=== PATIENT | female | born 1955 | race Caucasian/White ===

== ENCOUNTER 2017-01-30 09:43 | Emergency (ER) | payer MEDICAID ==
[2017-01-30 09:52] VITALS: BP 114/79
[2017-01-30] MEDS ORDERED: ACETAMINOPHEN 325 MG TABLET PO STA (10:00)
[2017-01-30] MEDS ORDERED: TETANUS/DIPHTHERIA/PERTUSSIS 0.5 ML SYRINGE IM ONE ×2 (10:00→10:16)
[2017-01-30] MEDS ORDERED: AMOX/CLAV 875 MG/125 MG TABLET PO STA (10:00)
[2017-01-30] MEDS ORDERED: IBUPROFEN 400 MG TABLET PO STA (10:00)
--- NOTE | 2017-01-30 10:05 | ED Physician Documentation ---
History of Present Illness - Stated complaint Stated Complaint: CAT SCRATCH,REDNESS/SWELLING - Chief complaint Chief Complaint: Laceration - Additonal information Additional information: hx from pt 61 healthy female tdap > 10 yr ago bit and scratched dorsal R FA by her healthy indoor cat last night 8 PM now red swollen painful at bit site Review of Systems Constitutional: denies: Fever Skin: reports: Bite / sting Immunocompromised: denies: Immunocompromised PD PAST MEDICAL HISTORY - Past Medical History Past Medical History: Yes Endocrine/Autoimmune: HyPOthyroidism Psych: Anxiety - Past Surgical History Past Surgical History: No - Present Medications Home Medications: Ambulatory Orders Medication Instructions Recorded Confirmed Amox/Clav 875/125 [Augmentin] 1 each PO Q12H #14 tablet 01/30/17 Levothyroxine [Synthroid] 50 mcg PO DAILY 01/30/17 01/30/17 Liothyronine [Cytomel] 50 mcg PO DAILY 01/30/17 01/30/17 - Allergies Allergies/Adverse Reactions: Allergies Allergy/AdvReac Type Severity Reaction Status Date / Time codeine Allergy Unknown Verified 01/30/17 09:52 - Social History Does the pt smoke?: No Smoking Status: Never smoker Does the pt drink ETOH?: Yes Does the pt have substance abuse?: No - Immunizations Immunizations are current?: No Immunizations: TDAP >10years/unknown PD ED PE NORMAL - Vitals Vital signs reviewed: Yes - Extremities Extremities: Other (R FA with several puncture brenner with surrounding erythema and stanton and tenderness, scratch site visile but not infected, able to passively range s pain but painful to active range wrist, MSV intact) Results - Vitals Vitals: Vital Signs - 24 hr 01/30/17 09:45 Temperature 36.1 C L Heart Rate 78 Respiratory 14 Rate Blood Pressure 114/79 O2 Saturation 98 Oxygen O2 Source Room air PD MEDICAL DECISION MAKING - ED course ED course: wounds cleansed and dressed, tdap, augmentin, [place] me for a recheck tomorrow Departure - Departure Disposition: 01 Home, Self Care Clinical Impression: Cat bite involving extremity Condition: Good Instructions: ED Bite Animal General Prescriptions: Amox/Clav 875/125 [Augmentin] 1 each PO Q12H #14 tablet Comments: Tylenol and motrin (with food) as needed for the pain Elevated and ice to decrease the swelling Return to see me tomorrow for a recheck about 8 AM
[2017-01-30] MEDS ORDERED: ACETAMINOPHEN 325 MG TABLET PO ONE (10:15)
[2017-01-30] MEDS ORDERED: IBUPROFEN 400 MG TABLET PO ONE (10:16)
[2017-01-30] MEDS ORDERED: AMOX/CLAV 875 MG/125 MG TABLET PO ONE (10:16)
== END 2017-01-30 10:30 | disposition home or self-care (01) ==
LOC: ED 09:43
DX: S51.851A Open bite of right forearm, initial encounter (principal); W55.01XA Bitten by cat, initial encounter; E03.9 Hypothyroidism, unspecified; Z23 Encounter for immunization
CPT/HCPCS: 90471; 90715; 99283; A9270

== ENCOUNTER 2017-01-31 08:38 | Emergency (ER) | payer MEDICAID ==
[2017-01-31 08:46] VITALS: BP 123/68
--- NOTE | 2017-01-31 09:33 | ED Physician Documentation ---
History of Present Illness - Stated complaint Stated Complaint: WOUND CHECK - Chief complaint Chief Complaint: Wound - Additonal information Additional information: pt to ER for wound check seen by me yesterday for R FA cat bite (healthy indoor pet cat) was infected started augmentin asked pt to retrun to ER for recheck [place] pt feels much much better Review of Systems Constitutional: denies: Fever Skin: reports: Bite / sting PD PAST MEDICAL HISTORY - Past Medical History Past Medical History: Yes Endocrine/Autoimmune: HyPOthyroidism Psych: Anxiety - Past Surgical History Past Surgical History: No - Present Medications Home Medications: Ambulatory Orders Medication Instructions Recorded Confirmed Amox/Clav 875/125 [Augmentin] 1 each PO Q12H #14 tablet 01/30/17 Levothyroxine [Synthroid] 50 mcg PO DAILY 01/30/17 01/31/17 Liothyronine [Cytomel] 50 mcg PO DAILY 01/30/17 01/31/17 - Allergies Allergies/Adverse Reactions: Allergies Allergy/AdvReac Type Severity Reaction Status Date / Time codeine Allergy Unknown Verified 01/31/17 08:47 - Social History Does the pt smoke?: No Smoking Status: Never smoker Does the pt drink ETOH?: Yes Does the pt have substance abuse?: No - Immunizations Immunizations are current?: No Immunizations: TDAP >10years/unknown PD ED PE NORMAL - Vitals Vital signs reviewed: Yes - Extremities Extremities: Other (R FA, site of bite is less red and swollen and today no TTP , there is precise recatngular region or erythema corresponding with ehr dressing and some small urticaria around the edges c/w contact derm and not c.w cellultiis from the bit, no streaking, ranging fingers and wrist s pain) Results - Vitals Vitals: Vital Signs - 24 hr 01/31/17 08:45 Temperature 36.5 C Heart Rate 72 Respiratory 16 Rate Blood Pressure 123/68 O2 Saturation 99 Oxygen O2 Source Room air Departure - Departure Disposition: Home, Self Care Clinical Impression: Cat bite involving extremity Condition: Good Instructions: ED Bite Animal General Comments: The bite looks much better I think you a reaction to the dressing though Leave the wound open, just wash with soap and water and apply an antibiotic ointment twice a day You may start gardening again on Return if worse
== END 2017-01-31 09:38 | disposition home or self-care (01) ==
LOC: ED 08:38
DX: S50.871A Other superficial bite of right forearm, initial encounter (principal); W55.01XA Bitten by cat, initial encounter; E03.9 Hypothyroidism, unspecified
CPT/HCPCS: 99282; 99283